=== PATIENT | female | born 1940 | race Caucasian/White ===

== ENCOUNTER 2019-01-05 11:55 | Inpatient (IN) | payer OTHER ==
[~2019-01-05] VITALS: Ht 172.7 cm; Wt 82.6 kg
[2019-01-05 13:13] LABS: CALCIUM 8.8 mg/dL (8.5-10.1); CARBON DIOXIDE 29.2 mmol/L (21-32); CHLORIDE SERUM 96 mmol/L (98-107); GLUCOSE SERUM 154 mg/dL (74-106); POTASSIUM SERUM 4.1 mmol/L (3.5-5.1); SODIUM SERUM 134 mmol/L (136-145)
[2019-01-05 13:25] LABS: ALKALINE PHOSPHATASE 101 U/L (46-116); ALT/SGPT 71 U/L (14-59); AST/SGOT 91 U/L (15-37); BILIRUBIN TOTAL 0.9 mg/dL (0.20-1.00); HDL CHOLESTEROL 37 mg/dL (40-60); LIPASE 77 IU/L (73-393); T4(THYROXINE) 7.8 ug/dL (4.7-13.3); TOTAL PROTEIN, SERUM 7.4 g/dL (6.4-8.2)
[2019-01-05 13:26] LABS: ALBUMIN 3.1 g/dL (3.4-5.0); AMYLASE 20 U/L (25-115); CHOLESTEROL 123 mg/dL (<200)
[2019-01-05 13:27] LABS: BASOPHIL % 0.8 % (0-2); PLATELET COUNT 303 x10^3mcL (130-400)
[2019-01-05 13:30] LABS: RED CELL DISTRIBUTION WIDTH 14.9 % (11.5-14.5)
[2019-01-05] MEDS ORDERED: ASPIR 8181 MG PO (14:36)
[2019-01-05] MEDS ORDERED: CARDIZEM CD240 MG PO (14:36)
[2019-01-05] MEDS ORDERED: CENTRUM CHEWAB1 EACH PO (14:38)
[2019-01-05] MEDS ORDERED: METOPROLOL SUCC50 M2 PO (14:39)
[2019-01-05] MEDS ORDERED: LISINOPRIL2.5 MG PO (14:39)
[2019-01-05 15:01] LABS: UA SPECIFIC GRAVITY >=1.030 (1.005-1.035); microscopic required? YES; urine erythrocyte 1+ (NEGATIVE)
[2019-01-05 15:08] LABS: AMPHETAMINE QUAL UR NONE DETECTED (See below)
[2019-01-05 15:23] VITALS: BP 98/62
[2019-01-05 15:29] VITALS: Ht 172.7 cm; Wt 82.6 kg
[2019-01-05 21:25] VITALS: BP 122/61
[2019-01-06 05:09] VITALS: BP 114/68
[2019-01-06 07:06] LABS: CALCIUM 8.5 mg/dL (8.5-10.1); CARBON DIOXIDE 30.8 mmol/L (21-32); CHLORIDE SERUM 97 mmol/L (98-107); CREATININE SERUM 1.7 mg/dL (0.6-1.0); GLUCOSE SERUM 197 mg/dL (74-106); POTASSIUM SERUM 4.3 mmol/L (3.5-5.1); SODIUM SERUM 135 mmol/L (136-145)
[2019-01-06 08:12] LABS: MAGNESIUM 1.9 mg/dL (1.8-2.4); PHOSPHOROUS 5.2 mg/dL (2.5-4.9)
[2019-01-06 09:58] VITALS: BP 121/59
[2019-01-06 13:25] VITALS: BP 129/74
[2019-01-06 18:42] VITALS: BP 109/74
[2019-01-06 20:20] VITALS: BP 119/76
[2019-01-06 21:52] VITALS: BP 119/76
[2019-01-07 05:53] VITALS: BP 104/55
[2019-01-07 06:29] LABS: CALCIUM 8.5 mg/dL (8.5-10.1); CARBON DIOXIDE 33.6 mmol/L (21-32); CHLORIDE SERUM 101 mmol/L (98-107); CREATININE SERUM 1.5 mg/dL (0.6-1.0); GLUCOSE SERUM 133 mg/dL (74-106); SODIUM SERUM 140 mmol/L (136-145)
[2019-01-07 07:15] LABS: BASOPHIL % 0.2 % (0-2); PLATELET COUNT 249 x10^3mcL (130-400)
[2019-01-07 07:32] LABS: RED CELL DISTRIBUTION WIDTH 15.4 % (11.5-14.5)
[2019-01-07 09:14] VITALS: BP 117/51
[2019-01-07 20:39] VITALS: BP 100/61
[2019-01-08 05:28] VITALS: BP 113/58
[2019-01-08 06:27] LABS: CALCIUM 8.6 mg/dL (8.5-10.1); CARBON DIOXIDE 35.7 mmol/L (21-32); CHLORIDE SERUM 99 mmol/L (98-107); CREATININE SERUM 1.4 mg/dL (0.6-1.0); GLUCOSE SERUM 109 mg/dL (74-106); POTASSIUM SERUM 4.6 mmol/L (3.5-5.1); SODIUM SERUM 139 mmol/L (136-145)
[2019-01-08 10:18] VITALS: BP 107/66
[2019-01-08 10:29] LABS: CALCIUM 8.7 mg/dL (8.5-10.1); CARBON DIOXIDE 31.1 mmol/L (21-32); CHLORIDE SERUM 99 mmol/L (98-107); CREATININE SERUM 1.2 mg/dL (0.6-1.0); GLUCOSE SERUM 134 mg/dL (74-106); SODIUM SERUM 138 mmol/L (136-145)
[2019-01-08 10:33] LABS: BASOPHIL % 0.9 % (0-2); PLATELET COUNT 251 x10^3mcL (130-400)
[2019-01-08 10:37] LABS: RED CELL DISTRIBUTION WIDTH 15.1 % (11.5-14.5)
[2019-01-08 12:39] VITALS: BP 107/66
[2019-01-08 14:21] VITALS: BP 121/52
== END 2019-01-08 14:45 | disposition short-term general hospital (02) | DRG 280 ==
LOC: ED 11:55 → DU 14:07
PROVIDERS: Emergency Medicine; Internal Medicine; ADMIT Internal Medicine Pulmonary Disease
DX: I21.4 Non-ST elevation (NSTEMI) myocardial infarction (principal); J18.9 Pneumonia, unspecified organism; J96.01 Acute respiratory failure with hypoxia; I50.23 Acute on chronic systolic (congestive) heart failure; J44.1 Chronic obstructive pulmonary disease with (acute) exacerbation; N17.9 Acute kidney failure, unspecified; N18.4 Chronic kidney disease, stage 4 (severe); J98.11 Atelectasis; N39.0 Urinary tract infection, site not specified; I48.0 Paroxysmal atrial fibrillation; I11.0 Hypertensive heart disease with heart failure; I13.10 Hypertensive heart and chronic kidney disease without heart failure, with stage 1 through stage 4 chronic kidney disease, or unspecified chronic kidney disease; E78.5 Hyperlipidemia, unspecified; F17.210 Nicotine dependence, cigarettes, uncomplicated; Z68.29 Body mass index [BMI] 29.0-29.9, adult
CPT/HCPCS: 36600; 82962; 83880; 87804; 94150; 99406; A9500; J0696; J1644; J1650; J1940; J1956; J2785; J2930; J7030; J7040; J7613; J7620; J7644; Q0092